=== PATIENT | female | born 1935 | race Caucasian/White ===

== ENCOUNTER 2017-12-28 08:00 | Outpatient (CLI) | payer MEDICARE, BC ==
[~2017-12-28 08:00] MED LIST: ASCO500C15 PO; ATOR-2 PO; CARV-49 PO; CHOL400T PO; CLOP75TA33 PO; COLC0.6T69 PO; DULO-31 PO; FURO80TA3 PO; PANT-47 PO; POTA20PA40; SYN0.0125T PO; UBID1CAP54 PO
== END 2017-12-28 23:59 | disposition home or self-care (01) ==
LOC: RT 08:00
PROVIDERS: ATTEND Internal Medicine Critical Care Medicine
DX: J44.9 Chronic obstructive pulmonary disease, unspecified (principal); I11.0 Hypertensive heart disease with heart failure; I50.9 Heart failure, unspecified; I25.10 Atherosclerotic heart disease of native coronary artery without angina pectoris; G47.33 Obstructive sleep apnea (adult) (pediatric); E11.9 Type 2 diabetes mellitus without complications; E03.9 Hypothyroidism, unspecified; M10.9 Gout, unspecified; M19.90 Unspecified osteoarthritis, unspecified site; I25.2 Old myocardial infarction; Z95.0 Presence of cardiac pacemaker; Z95.2 Presence of prosthetic heart valve; Z88.9 Allergy status to unspecified drugs, medicaments and biological substances; Z90.710 Acquired absence of both cervix and uterus; Z90.49 Acquired absence of other specified parts of digestive tract; Z79.82 Long term (current) use of aspirin; Z87.891 Personal history of nicotine dependence
CPT/HCPCS: 94618

== ENCOUNTER 2020-06-25 10:00 | Emergency (ER) | payer MEDICARE, BC ==
[~2020-06-25] VITALS: Ht 170.2 cm; Wt 71.9 kg
[~2020-06-25 10:00] MED LIST changes: -ASCO500C15 PO; +ASCO500C18 PO; -COLC0.6T69 PO; +FURO-149 PO; -FURO80TA3 PO; +LEVO125T68 PO; +NITR0.4T51 SL; -PANT-47 PO; +PANT40TA54 PO; +POTA20PA31 PO; -POTA20PA40; +POTA20TA19 PO; +SACU1TAB PO; +SPIR25TA PO; -SYN0.0125T PO; +TIOT4MIS5 INH
[2020-06-25 10:11] VITALS: BP 130/52
== END 2020-06-25 10:56 | disposition home or self-care (01) ==
LOC: ER 10:00
DX: S91.301A Unspecified open wound, right foot, initial encounter (principal); I25.10 Atherosclerotic heart disease of native coronary artery without angina pectoris; I11.0 Hypertensive heart disease with heart failure; I50.9 Heart failure, unspecified; E78.00 Pure hypercholesterolemia, unspecified; I25.2 Old myocardial infarction; K21.9 Gastro-esophageal reflux disease without esophagitis; E11.9 Type 2 diabetes mellitus without complications; M19.90 Unspecified osteoarthritis, unspecified site; M10.9 Gout, unspecified; F32.9 Major depressive disorder, single episode, unspecified; Z87.01 Personal history of pneumonia (recurrent); Z90.89 Acquired absence of other organs; Z90.49 Acquired absence of other specified parts of digestive tract; Z95.0 Presence of cardiac pacemaker; Z98.890 Other specified postprocedural states; Z88.8 Allergy status to other drugs, medicaments and biological substances; Z88.5 Allergy status to narcotic agent; Z79.899 Other long term (current) drug therapy; X58.XXXA Exposure to other specified factors, initial encounter; Y93.89 Activity, other specified; Y92.89 Other specified places as the place of occurrence of the external cause; Y99.8 Other external cause status
CPT/HCPCS: 99281

== ENCOUNTER 2022-06-08 12:49 | Outpatient (CLI) | payer MEDICARE, BC ==
[~2022-06-08 12:49] MED LIST changes: +POTA-207 PO; -POTA20TA19 PO
== END 2022-06-08 23:59 | disposition home or self-care (01) ==
LOC: CARD DIAG 12:49
PROVIDERS: ATTEND Internal Medicine Cardiovascular Disease
DX: I08.1 Rheumatic disorders of both mitral and tricuspid valves (principal); I50.22 Chronic systolic (congestive) heart failure; Z95.2 Presence of prosthetic heart valve
CPT/HCPCS: 93306